=== PATIENT | male | born 1955 | race Caucasian/White ===

== ENCOUNTER 2024-11-16 09:24 | Emergency (ER) | payer MEDICARE, MEDICAID ==
[~2024-11-16] VITALS: Ht 188 cm; Wt 88.6 kg
[~2024-11-16 09:24] MED LIST: ALBU18HF2 INH; NO HOME MEDS
[2024-11-16 09:34] VITALS: BP 154/100; PULSE 76; RESP 18; O2SAT 98
--- NOTE | 2024-11-16 10:14 | RADIOLOGY REPORT ---
CLINICAL INDICATION: RT.HIP PAIN TECHNIQUE: DI HIP UNILATERAL 2 VIEWS Comparison: None FINDINGS/IMPRESSION: : There is no evidence of acute fracture or dislocation. Soft tissues are unremarkable. Bilateral hip arthroplasty.
--- NOTE | 2024-11-16 10:15 | RADIOLOGY REPORT ---
CLINICAL INDICATION: RT.ANKLE PAIN TECHNIQUE: 3 DI ANKLE, COMPLETE(3VW MIN) Comparison: None FINDINGS/IMPRESSION: : There is no evidence of acute fracture or dislocation. Small joint effusion. Osteopenia.
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
[2024-11-16 12:20] VITALS: TEMP 97.8
== END 2024-11-16 12:21 | disposition home or self-care (01) ==
LOC: ER 09:25
DX: M25.571 Pain in right ankle and joints of right foot (principal); Z88.5 Allergy status to narcotic agent; Z79.899 Other long term (current) drug therapy; W18.30XA Fall on same level, unspecified, initial encounter; Y93.89 Activity, other specified; Y92.89 Other specified places as the place of occurrence of the external cause; Y99.8 Other external cause status
CPT/HCPCS: 73502; 73610; 99284; L4360